=== PATIENT | female | born 1955 | race Caucasian/White ===

== ENCOUNTER 2020-01-01 08:34 | Outpatient (CLI) | payer MEDICARE, OTHER ==
[2020-01-01 12:08] LABS: ALBUMIN 3.8 g/dL (3.2-5.5); ALKALINE PHOSPHATASE 72 IU/L (42-121); ALT ALANINE AMINOTRANSFERASE 20 IU/L (10-60); AST ASPARTATE AMINOTRANSFERASE 15 IU/L (10-42); BILIRUBIN,TOTAL 0.8 mg/dL (0.2-1.0); BUN - BLOOD UREA NITROGEN 14 mg/dL (6-20); CALCIUM 9.3 mg/dL (8.5-10.3); CARBON DIOXIDE - CO2 26 mmol/L (21-32); CHLORIDE 103 mmol/L (101-111); CHOL/HDL RATIO 3.8 (<4.4); CHOLESTEROL 199 mg/dL; CREATININE 0.5 mg/dL (0.4-1.0); GLUCOSE 92 mg/dL (70-100); HDL CHOLESTEROL 52 mg/dL; LDL CHOLESTEROL,CALCULATED 112 mg/dL; LDL/HDL RATIO 2.2 (<4.4); SODIUM 139 mmol/L (135-145); TOTAL PROTEIN 7.6 g/dL (6.7-8.2); VLDL CHOLESTEROL 35 mg/dL
[2020-01-01 12:11] LABS: BASOPHILS % (AUTO) 0.3 %; EOSINOPHILS # (AUTO) 0.4 10^3/uL (0.0-0.7); EOSINOPHILS % (AUTO) 3.5 %; HGB - HEMOGLOBIN 14.2 g/dL (12.0-16.0); LYMPHOCYTES # (AUTO) 3.1 10^3/uL (1.5-3.5); LYMPHOCYTES % (AUTO) 29.6 %; MEAN CORPUSCULAR HEMOGLOBIN 28.6 pg (27.0-31.0); MEAN CORPUSCULAR HGB CONC 34.9 g/dL (32.0-36.0); MEAN CORPUSCULAR VOLUME 81.9 fL (81.0-99.0); MEAN PLATELET VOLUME 11.3 fL (7.9-10.8); MONOCYTES # (AUTO) 0.6 10^3/uL (0.0-1.0); MONOCYTES % (AUTO) 5.8 %; NEUTROPHILS # (AUTO) 6.4 10^3/uL (1.5-6.6); NEUTROPHILS % (AUTO) 60.5 %; PLT - PLATELET COUNT 387 10^3/uL (130-450); RED BLOOD COUNT 4.97 10^6/uL (4.20-5.40); RED CELL DISTRIBUTION WIDTH 13.7 % (12.0-15.0); WHITE BLOOD COUNT 10.5 x10^3/uL (4.8-10.8)
[2020-01-01 12:56] LABS: HEMOGLOBIN A1c% 5.6 % (4.27-6.07)
== END 2020-03-02 23:59 | disposition home or self-care (01) ==
LOC: LAB.WCP 08:34
PROVIDERS: ATTEND Nurse Practitioner Family
DX: I10 Essential (primary) hypertension (principal); M06.9 Rheumatoid arthritis, unspecified; R73.03 Prediabetes; Z86.39 Personal history of other endocrine, nutritional and metabolic disease
CPT/HCPCS: 36415; 80053; 80061; 83036; 83721; 84443; 85025

== ENCOUNTER 2020-03-31 15:40 | Outpatient (CLI) | payer MEDICARE, BC ==
[2020-03-31 18:02] LABS: BASOPHILS % (AUTO) 0.2 %; EOSINOPHILS # (AUTO) 0.4 10^3/uL (0.0-0.7); EOSINOPHILS % (AUTO) 4.6 %; HGB - HEMOGLOBIN 13.8 g/dL (12.0-16.0); LYMPHOCYTES # (AUTO) 2.5 10^3/uL (1.5-3.5); LYMPHOCYTES % (AUTO) 29.6 %; MEAN CORPUSCULAR HEMOGLOBIN 27.4 pg (27.0-31.0); MEAN CORPUSCULAR HGB CONC 34.8 g/dL (32.0-36.0); MEAN CORPUSCULAR VOLUME 78.8 fL (81.0-99.0); MEAN PLATELET VOLUME 11.8 fL (7.9-10.8); MONOCYTES # (AUTO) 0.6 10^3/uL (0.0-1.0); MONOCYTES % (AUTO) 6.8 %; NEUTROPHILS % (AUTO) 58.7 %; PLT - PLATELET COUNT 377 10^3/uL (130-450); RED BLOOD COUNT 5.04 10^6/uL (4.20-5.40); RED CELL DISTRIBUTION WIDTH 14.4 % (12.0-15.0); WHITE BLOOD COUNT 8.6 x10^3/uL (4.8-10.8)
[2020-03-31 18:13] LABS: ALBUMIN 3.8 g/dL (3.2-5.5); BILIRUBIN,TOTAL 0.7 mg/dL (0.2-1.0); CALCIUM 9.1 mg/dL (8.5-10.3); CREATININE 0.5 mg/dL (0.4-1.0); CRP - C-REACTIVE PROTEIN 1.2 mg/dL (0-1.0); TOTAL PROTEIN 7.6 g/dL (6.7-8.2)
[2020-03-31 18:25] LABS: RHEUMATOID FACTOR NEGATIVE (Negative)
[2020-04-01 12:26] LABS: HEPATITIS C ANTIBODY NON-REACTIVE (NON-REACTIVE)
[2020-04-01 12:27] LABS: HEPATITIS B SURFACE ANTIGEN NON-REACTIVE (NON-REACTIVE)
[2020-04-02 20:32] LABS: CYCLIC CITRULL PEPTIDE CCP IGG >250 UNITS
== END 2020-03-31 23:59 | disposition home or self-care (01) ==
LOC: LAB.WCP 15:40
PROVIDERS: ATTEND Internal Medicine Rheumatology
DX: M06.9 Rheumatoid arthritis, unspecified (principal)
CPT/HCPCS: 36415; 80053; 81599; 85025; 85651; 86140; 86200; 86317; 86430; 86480; 86704; 86803; 87340

== ENCOUNTER 2020-05-04 14:02 | Outpatient (CLI) | payer MEDICARE, BC ==
[2020-05-04 15:20] VITALS: BP 108/62
--- NOTE | 2020-05-04 15:20 | SLEEP CARE CONSULTATION ---
Information from patient questionnaire entered by Ismael Cummins. I have reviewed and concur with the information entered by Ismael Cummins. This document represents the service I personally performed and the decisions made by me, Eda Patel ARNP. History of Present Illness Service Date and Time: 05/04/2020 1402 Reason for Visit: New patient Chief Complaint: reports: Unrefreshed sleep, Snoring, Observed pauses in breathing, Fatigue, Frequent awakenings at night Date of Onset: Since 2014 Usual bedtime: 11:30 PM Time it takes to fall asleep: 1 hr Snores at night: No Number of times waking at night: 2-3 times Reasons for waking at night: reports: Gasping for air, Bathroom Toss, Turn, or Twitch while sleeping: Yes Recalls having dreams: No Usually gets out of bed at: 5 AM Feels refreshed in the morning: No Morning headache: No Sleepy or fatigued during the day: Yes Ever fallen asleep while driving: No (N/A) Takes day naps: Yes Dreams during day naps: No Prior sleep studies: Yes Year and Where: 2019 in [place], [place] - never got on machine Additional HPI information: I had the pleasure of seeing MYRANDA PACHECO today regarding the possibility of her having a sleep disorder. Her current complaints are snoring, observed pauses in breathing, frequent night awakenings, unrefreshed sleep and fatigue. She had a sleep study in 2019. She thought she was just a little bit over where she needed treatment but the physician told her she should use a CPAP. She never went back for the second test. She was referred by her PCP to complete her sleep evaluation. She has difficulty sleeping and wakes up 2-3 times a night. She usually sleeps good for 2-3 hours before she starts sleeping waking up. 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 Have you smoked in the past 12 months: No Alcohol use: No Caffeine use: No Family History Family history of sleep disordered breathing: No Allergies and Home Medications Drug allergies reviewed: Yes (aleve) Home medication list reviewed: Yes Allergy and home medication list: Clotrimazole-Betamethasone cream Spironolactone Pilocarpine MSM [place] Jelly Taiwanese Yam Chromium picolinate aloe vera vision essential citracal Elderberry bacopa monniera airborne Fish oil Diphenhydramine papaya Loratidine Vitamin B complex Vitamin C Coconut oil Famotidine bisoprolol fumarate amlodipine besylate Magnesium oxide L-arginine Vit Alive gummy Acetominophen prn olive leaf 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 prn cranberry concentrate, prn fluticasone propinate, prn Mucinex, prn Valerian Review of Systems Weight gain over past 5 years: 10 Cardiovascular: reports: high blood pressure Respiratory: reports: shortness of breath Gastrointestinal: reports: heartburn, abdominal pain Psychiatric: reports: anxiety, depression Ear/Nose/Throat: reports: nasal congestion, dry mouth/throat Endocrine: reports: sluggishness (tired) Musculoskeletal: reports: joint pain (stiffness), joint swelling, muscle pain or cramping, mobility problems Physical Exam Blood Pressure: 108/62 Cuff size: wrist Heart Rate: 81 O2 Saturation: 96 Height: 5 ft Weight: 156 lb Body Mass Index: 30.4 BMI Classification: Obese Neck circumference: 13.6 (inches) Nostrils: patent to airflow Mouth and throat: narrow oropharynx Soft palate: long Hard palate: normal Uvula: normal Uvula visualization: 50% Mallampati Class II Tongue: normal in size Tonsils: absent bilaterally Neck: normal w/o lymphadenopathy or thyromegaly Heart: regular rate and rhythm Lungs: clear bilaterally Impression and Plan 1. Suspected Obstructive Sleep Apnea-Hypopnea Syndrome, as previously diagnosed and as suggested by a history of loud and irregular snoring, observed cessation of breath while asleep, gasping or choking in sleep, frequent awakening during the night, unrefreshed sleep, cognitive impairment, and excessive daytime sleepiness. She did have a previous study but did not go through with her second sleep study and never started on CPAP therapy. I recommend proceeding to polysomnography to confirm the diagnosis and to assess severity since she never started therapy. If the patient has significant sleep disordered breathing, a manual CPAP titration study will also be performed to find the optimal treatment pressure. * Schedule polysomnography +- manual CPAP titration study and return in 1-2 weeks after the study to discuss result and initiate therapy. * Avoid sedative and muscle relaxants around bedtime. * Attempt to lose weight. * Review instructions provided by trained office staff on how to prepare for the sleep study. * Return for follow-up after sleep study completed. Counseling Topics: Weight loss health impact Visit Type: In Office Time Spent with Patient (minutes): 37 Provider Statement: I spent 100% of the Face to Face Visit with the patient with greater than 50% spent counseling the patient and coordination of care.
== END 2020-05-04 14:03 | disposition home or self-care (01) ==
LOC: SC 14:02
PROVIDERS: ATTEND Nurse Practitioner Family
DX: G47.10 Hypersomnia, unspecified (principal); R06.81 Apnea, not elsewhere classified; G47.8 Other sleep disorders; R53.83 Other fatigue; R06.83 Snoring; R41.89 Other symptoms and signs involving cognitive functions and awareness; E66.9 Obesity, unspecified; Z68.30 Body mass index [BMI] 30.0-30.9, adult
CPT/HCPCS: 99203; G0463; 99212

== ENCOUNTER 2020-05-12 08:00 | Outpatient (CLI) | payer MEDICARE, BC ==
[2020-05-12 18:12] LABS: BASOPHILS % (AUTO) 0.2 %; EOSINOPHILS # (AUTO) 0.5 10^3/uL (0.0-0.7); EOSINOPHILS % (AUTO) 5.2 %; HCT - HEMATOCRIT 40.4 % (37.0-47.0); HGB - HEMOGLOBIN 13.7 g/dL (12.0-16.0); LYMPHOCYTES # (AUTO) 2.7 10^3/uL (1.5-3.5); LYMPHOCYTES % (AUTO) 29.5 %; MEAN CORPUSCULAR HEMOGLOBIN 26.8 pg (27.0-31.0); MEAN CORPUSCULAR HGB CONC 33.9 g/dL (32.0-36.0); MEAN CORPUSCULAR VOLUME 79.1 fL (81.0-99.0); MEAN PLATELET VOLUME 12.1 fL (7.9-10.8); MONOCYTES # (AUTO) 0.6 10^3/uL (0.0-1.0); MONOCYTES % (AUTO) 6.7 %; NEUTROPHILS # (AUTO) 5.4 10^3/uL (1.5-6.6); NEUTROPHILS % (AUTO) 58.2 %; PLT - PLATELET COUNT 362 10^3/uL (130-450); RED BLOOD COUNT 5.11 10^6/uL (4.20-5.40); RED CELL DISTRIBUTION WIDTH 14.6 % (12.0-15.0); WHITE BLOOD COUNT 9.3 x10^3/uL (4.8-10.8)
[2020-05-12 18:29] LABS: ALBUMIN 3.8 g/dL (3.2-5.5); ALBUMIN/GLOBULIN RATIO 1.1 (1.0-2.2); BILIRUBIN,TOTAL 0.6 mg/dL (0.2-1.0); CALCIUM 9.1 mg/dL (8.5-10.3); CREATININE 0.5 mg/dL (0.4-1.0); POTASSIUM 3.7 mmol/L (3.5-5.0); TOTAL PROTEIN 7.3 g/dL (6.7-8.2)
== END 2020-05-12 23:59 | disposition home or self-care (01) ==
LOC: LAB.WCP 08:00
PROVIDERS: ATTEND Internal Medicine Rheumatology
DX: M05.79 Rheumatoid arthritis with rheumatoid factor of multiple sites without organ or systems involvement (principal)
CPT/HCPCS: 36415; 80053; 85025; 85651

== ENCOUNTER 2020-07-07 15:01 | Outpatient (CLI) | payer MEDICARE, BC ==
[2020-07-07 17:58] LABS: BASOPHILS % (AUTO) 0.3 %; EOSINOPHILS # (AUTO) 0.3 10^3/uL (0.0-0.7); EOSINOPHILS % (AUTO) 3.3 %; HCT - HEMATOCRIT 39.4 % (37.0-47.0); HGB - HEMOGLOBIN 13.5 g/dL (12.0-16.0); LYMPHOCYTES # (AUTO) 2.3 10^3/uL (1.5-3.5); LYMPHOCYTES % (AUTO) 25.1 %; MEAN CORPUSCULAR HEMOGLOBIN 26.9 pg (27.0-31.0); MEAN CORPUSCULAR HGB CONC 34.3 g/dL (32.0-36.0); MEAN CORPUSCULAR VOLUME 78.6 fL (81.0-99.0); MEAN PLATELET VOLUME 12.8 fL (7.9-10.8); MONOCYTES # (AUTO) 0.8 10^3/uL (0.0-1.0); MONOCYTES % (AUTO) 8.6 %; NEUTROPHILS # (AUTO) 5.7 10^3/uL (1.5-6.6); NEUTROPHILS % (AUTO) 62.5 %; PLT - PLATELET COUNT 330 10^3/uL (130-450); RED BLOOD COUNT 5.01 10^6/uL (4.20-5.40); RED CELL DISTRIBUTION WIDTH 14.5 % (12.0-15.0); WHITE BLOOD COUNT 9.1 x10^3/uL (4.8-10.8)
[2020-07-07 18:56] LABS: ALBUMIN 3.8 g/dL (3.2-5.5); ALBUMIN/GLOBULIN RATIO 1.1 (1.0-2.2); BILIRUBIN,TOTAL 0.6 mg/dL (0.2-1.0); CREATININE 0.6 mg/dL (0.4-1.0); POTASSIUM 3.7 mmol/L (3.5-5.0); TOTAL PROTEIN 7.2 g/dL (6.7-8.2)
== END 2020-07-07 23:59 | disposition home or self-care (01) ==
LOC: LAB.WCP 15:01
PROVIDERS: ATTEND Internal Medicine Rheumatology
DX: M05.79 Rheumatoid arthritis with rheumatoid factor of multiple sites without organ or systems involvement (principal)
CPT/HCPCS: 36415; 80053; 85025; 85651

== ENCOUNTER 2020-07-08 12:18 | Outpatient (CLI) | payer MEDICARE, BC ==
--- NOTE | 2020-07-08 15:28 | SLEEP CARE CONSULTATION ---
Information from patient questionnaire entered by Kenisha Mcginnis. I have reviewed and concur with the information entered by Kenisha Mcginnis. This document represents the service I personally performed and the decisions made by , Eda Patel ARNP. History of Present Illness Service Date and Time: 07/08/2020 1218 Initial [place] Sleepiness Scale score: 16 (in 2020) Current [place] Sleepiness Scale score: 17 Additional HPI information: MYRANDA PACHECO returns for follow up and results of the recently performed polysomnography at [facility]. I explained the pathophysiology behind obstructive sleep apnea. We then spent quite a bit of time discussing different treatment options. For mild obstructive sleep apnea, surgery and oral appliance are alternatives to nasal CPAP therapy but in moderate or severe cases, nasal CPAP is the most effective and reliable treatment. Because apnea is primarily in supine position, then positional management therapy could be effective. Methods discussed such as positioning with pillows to prevent supine sleep. I reviewed the impact of weight changes on sleep apnea and strongly recommended losing weight. After some discussion, the patient opted to go with the nasal CPAP therapy. Nasal autoCPAP set at 4-15 cmH20 will be ordered with rationale explained. A manual titration study will be ordered if unable to find optimal pressure with office adjustments. I explained how CPAP machine works with sample devices Respironics Dreamstation and ResFlipaste [id number] and what to expect when using the machine. Sleep Study - Results Type of Sleep Study: Polysomnography ([facility]) Prior sleep studies: Yes Year and Where: 2018 in [place], [place] - never got on machine Polysomnography/Home Sleep Study results: This nocturnal polysomnographic sleep study showed mild snoring which was intermittent in nature. The apnea/hypopnea index was 16.0 and the sleep efficiency was 46.7%. The PLM index was 54.3. The sleep study Is consistent with moderate obstructive sleep apnea which was severe in REM sleep with significant desaturation events down to 65%. Therefore, would recommend the patient return to the sleep lab for a fullnight CPAP titration study. Alternative therapies, Including dental appliances and surgical procedures could also be considered. Attaining optimal weight is recommended. Allergies and Home Medications Home medication list reviewed: Yes (no new meds) Review of Systems Review of systems same as previous: No (Vertigo) Physical Exam Heart Rate: 97 O2 Saturation: 95 Height: 5 ft Weight: 156 lb Body Mass Index: 30.4 BMI Classification: Obese Impression and Plan 1. Obstructive Sleep Apnea-Hypopnea Syndrome, moderate, with lowest oxygen saturation of 65%. Obviously this is the cause of the patients symptoms of unrefreshed sleep, and excessive daytime sleepiness. Positive pressure therapy could benefit hypertension, anxiety, depression and attention deficit. Patient is leaving for town until first week of September and does not want to start the CPAP until she get back into town. Compliance guidelines were reviewed. Because the apnea is more severe supine, I instructed to avoid sleeping supine using pillow positioning until able to start CPAP use. * Patient to call to start CPAP when she is back in town. * Attempt to lose weight. * Avoid alcohol consumption near bedtime. * Avoid supine sleep until using CPAP. * Return one month after CPAP obtained. I will assess response to therapy and compliance at that time. Counseling Topics: Weight loss health impact Visit Type: In Office Time Spent with Patient (minutes): 17 Provider Statement: I spent 100% of the Face to Face Visit with the patient with greater than 50% spent counseling the patient and coordination of care.
== END 2020-07-08 12:19 | disposition home or self-care (01) ==
LOC: SC 12:18
PROVIDERS: ATTEND Nurse Practitioner Family
DX: G47.33 Obstructive sleep apnea (adult) (pediatric) (principal); E66.9 Obesity, unspecified; Z68.30 Body mass index [BMI] 30.0-30.9, adult
CPT/HCPCS: 99212

== ENCOUNTER 2020-07-08 16:51 | Emergency (ER) | payer MEDICARE, BC ==
--- OUTSIDE RECORDS SUMMARY | 2020-07-08 16:54 | EXTERNAL MEDICAL SUMMARY RPT | Continuity of Care Document ---
:1955 Demographics Phone Unavailable Preferred Language Northern Irish Marital Status Unknown Yazidism Affiliation Unknown Race Unknown Ethnic Group Unknown Author Organization [facility] Address [address] [place] [address] Phone Care Team Providers Name Role Phone Bebeto Davis Unavailable Unavailable Problems date description facility [id number] Sleep apnea, unspecified [facility] [id number] Other [facility] Procedures date description facility [id number] [facility]
--- OUTSIDE RECORDS SUMMARY | 2020-07-08 17:01 | EXTERNAL MEDICAL SUMMARY RPT | Continuity of Care Document ---
:1955 Demographics Phone Unavailable Preferred Language South Korean Marital Status Unknown Yazidism Affiliation Unknown Race Unknown Ethnic Group Unknown Author Organization [facility] Address [address] [place] [address] Phone Care Team Providers Name Role Phone Bebeto Davis Unavailable Unavailable Problems date description facility [id number] Sleep apnea, unspecified [facility] [id number] Other [facility] Procedures date description facility [id number] [facility]
[2020-07-08] MEDS ORDERED: MECLIZINE 12.5 MG TABLET PO STA ×2 (18:22→20:46)
--- NOTE | 2020-07-08 18:22 | ED Physician Documentation ---
History of Present Illness - Stated complaint Stated Complaint: VERTIGO - Chief complaint Chief Complaint: General - History obtained from History obtained from: Patient - Additonal information Additional information: 64-year-old woman with hypertension, hyperlipidemia, sleep apnea, blindness has been vertiginous for a week. It is worse when she turns her head. Before today it was really only present if she laid down. Starting today she has it more in other positions. Its associated with a couple of days of pain in the right posterior neck. She was nauseous and was seen at an urgent care clinic who sent her here after giving her Zofran. Review of Systems Ten Systems: 10 systems reviewed and negative Constitutional: denies: Fever, Chills Eyes: reports: Loss of vision. denies: Decreased vision, Photophobia PD PAST MEDICAL HISTORY - Present Medications Home Medications: Ambulatory Orders Medication Instructions Recorded Confirmed Leflunomide [Arava] 1 tab DAILY 07/08/20 07/08/20 Meclizine HCl [Antivert] 1 tablet PO Q6H PRN #30 tab 07/08/20 amLODIPine [Norvasc] 1 tab DAILY 07/08/20 07/08/20 - Allergies Allergies/Adverse Reactions: Allergies Allergy/AdvReac Type Severity Reaction Status Date / Time No Known Drug Allergies Allergy Verified 07/08/20 17:04 PD ED PE NORMAL - Vitals Vital signs reviewed: Yes - General General: Alert and oriented X 3, No acute distress - HEENT HEENT: Other (Difficult to assess extraocular movements, she does not think her vision is any worse than normal. She does have nystagmus horizontally when I turn her head to the left. She feels the vertigo is worse when we turn her head to the right.) - Neck Neck: Supple, no meningeal sign, No bony TTP - Cardiac Cardiac: RRR, No murmur - Respiratory Respiratory: No respiratory distress, Clear bilaterally - Abdomen Abdomen: Normal bowel sounds, Soft, Non tender - Back Back: No CVA TTP, No spinal TTP - Derm Derm: Normal color, Warm and dry - Extremities Extremities: No edema, No calf tenderness / cord - Neuro Neuro: Alert and oriented X 3, veterinary microbiologist 2-12 intact (Other than blindness, extraocular movements and other cranial nerves seem intact.), No motor deficit, No sensory deficit, Normal speech Eye Opening: Spontaneous Motor: Obeys Commands Verbal: Oriented GCS Score: 15 Results - Vitals Vitals: Vital Signs - 24 hr 07/08/20 07/08/20 07/08/20 17:00 18:30 20:55 Temperature 36.1 C L 36.6 C Heart Rate 88 87 84 Respiratory 14 16 18 Rate Blood Pressure 142/69 H 154/70 H 130/69 O2 Saturation 96 97 95 Oxygen O2 Source Room air - EKG (time done) 2049 Rate: Rate (enter#) (83) Rhythm: NSR [place]: Normal Intervals: Normal CA QRS: LVH Ischemia: Normal ST segments - Labs Labs: Laboratory Tests 07/08/20 07/08/20 18:26 18:26 WBC 12.9 H RBC 5.17 Hgb 14.2 Hct 40.4 MCV 78.1 L MCH 27.5 MCHC 35.1 RDW 14.3 Plt Count 327 MPV 11.2 H Neut # (Auto) 10.6 H Lymph # (Auto) 1.5 [place] # (Auto) 0.5 Eos # (Auto) 0.2 Baso # (Auto) 0.0 Absolute Nucleated RBC 0.00 Nucleated RBC % 0.0 Sodium 141 Potassium 3.5 Chloride 102 Carbon Dioxide 29 Anion Gap 10.0 BUN 14 Creatinine 0.4 Estimated GFR (MDRD) 160 Glucose 124 H Calcium 9.1 PD MEDICAL DECISION MAKING - ED course ED course: 64-year-old woman with some comorbidities presents with what seems like peripheral vertigo. Exam was a little difficult because of blindness. As such CT angiography of the head and neck were done without pertinent positive findings but the thyroid abnormality was discussed with her and her daughter. Of note she had normal thyroid studies about 6 months ago. Also discussed finding of LVH on EKG and the need for follow-up for that. She was vertigo free after meclizine here. Departure - Departure Disposition: 01 Home, Self Care Clinical Impression: Vertigo Condition: Good Record reviewed to determine appropriate education?: Yes Instructions: ED Vertigo Unspecified Prescriptions: Meclizine HCl [Antivert] 1 tablet PO Q6H PRN #30 tab PRN Reason: Vertigo Comments: EKG does not show anything that looks new, but it does suggest enlargement of the left ventricle. Follow-up with your primary care physician and discuss ultrasonography/echocardiography of the heart. Return for new or worsening symptoms. Do not drink or drive while taking meclizine as it is slightly sedating. CT of the head and neck were negative but did suggest some enlargement of the thyroid gland. Thyroid function was normal on labs about 6 months ago but probably needs to be followed by your doctor as well.
[2020-07-08] MEDS ORDERED: IOPAMIDOL-300 100 ML VIAL ONE (18:29)
[2020-07-08 18:31] LABS: BASOPHILS % (AUTO) 0.2 %; EOSINOPHILS # (AUTO) 0.2 10^3/uL (0.0-0.7); EOSINOPHILS % (AUTO) 1.7 %; HCT - HEMATOCRIT 40.4 % (37.0-47.0); HGB - HEMOGLOBIN 14.2 g/dL (12.0-16.0); LYMPHOCYTES # (AUTO) 1.5 10^3/uL (1.5-3.5); LYMPHOCYTES % (AUTO) 11.8 %; MEAN CORPUSCULAR HEMOGLOBIN 27.5 pg (27.0-31.0); MEAN CORPUSCULAR HGB CONC 35.1 g/dL (32.0-36.0); MEAN CORPUSCULAR VOLUME 78.1 fL (81.0-99.0); MEAN PLATELET VOLUME 11.2 fL (7.9-10.8); MONOCYTES # (AUTO) 0.5 10^3/uL (0.0-1.0); MONOCYTES % (AUTO) 3.7 %; NEUTROPHILS # (AUTO) 10.6 10^3/uL (1.5-6.6); NEUTROPHILS % (AUTO) 82.4 %; PLT - PLATELET COUNT 327 10^3/uL (130-450); RED BLOOD COUNT 5.17 10^6/uL (4.20-5.40); RED CELL DISTRIBUTION WIDTH 14.3 % (12.0-15.0); WHITE BLOOD COUNT 12.9 x10^3/uL (4.8-10.8)
[2020-07-08 18:41] LABS: CALCIUM 9.1 mg/dL (8.5-10.3); CREATININE 0.4 mg/dL (0.4-1.0); POTASSIUM 3.5 mmol/L (3.5-5.0)
[2020-07-08] MEDS ORDERED: HYDROmorphone 1 MG/ML CARPUJECT IVP STA (18:46)
--- NOTE | 2020-07-08 20:19 | CT Report ---
PROCEDURE: ANGIO NECK W INDICATIONS: vertigo CONTRAST: IV CONTRAST: Isovue 300 ml: 80 PO CONTRAST: *NO PO CONTRAST TECHNIQUE: After the administration of intravenous contrast, 1.5 mm axial sections acquired from the aortic arch to the [place] of Valdovinos. Coronal 3-D maximum intensity projection (MIP) and/or volume rendering ref ormats were then performed. For radiation dose reduction, the following was used: automated exposur e control, adjustment of mA and/or kV according to patient size. COMPARISON: None. FINDINGS: Image quality: Excellent. Carotid system: The great vessels demonstrate a conventional anatomy as they arise from the aortic a rc. The origins of the common carotid arteries appear patent. The common carotid arteries demonstr ate normal calibers and courses. The bifurcation regions appear normal bilaterally. The internal ca rotid arteries demonstrate normal caliber and course. Posterior circulation: The origins of the vertebral arteries appear patent. The more superior porti ons of the vertebral arteries demonstrate normal course and caliber. They join to form a normal appe aring basilar artery. Soft tissues: Visualized neck soft tissues demonstrate no suspicious abnormalities. The thyroid gla nd is heterogeneous enhancement. Bones: No suspicious bony lesions. Visualized cervical spine appears normally aligned. IMPRESSION: 1. No hemodynamic significant stenosis or occlusion in cervical carotid and vertebral arteries. 2. Enlarged thyroid gland demonstrates heterogeneous enhancement. Please correlate with thyroid funct ion tests. The estimate of stenosis included in the report of the imaging study was calculated using the NASCET method Reviewed by: Danish Alaniz MD on 07/08/2020 8:17 PM PDT Approved by: Danish Alaniz MD on 07/08/2020 8:17 PM PDT Station ID: [id number]
[2020-07-08] MEDS ORDERED: IOPAMIDOL-300 100 ML VIAL IVP ONE (20:34)
--- NOTE | 2020-07-08 20:38 | CT Report ---
PROCEDURE: ANGIO HEAD W/WO INDICATIONS: vertigo CONTRAST: IV CONTRAST: Isovue 300 ml: 80 PO CONTRAST: *NO PO CONTRAST TECHNIQUE: Precontrast 4.5 mm thick angled axial sections acquired from the foramen magnum to the vertex. Afte r the administration of intravenous contrast, 1 mm thick sections acquired through the [place] of Will is. Postcontrast 4.5 mm thick sections then re-acquired from the foramen magnum to the vertex. 3-di mensional fuyaygt-fuwfmalbj-jpjbqayjol (MIP) and/or volume rendering reformats were acquired of the c entral intracranial vasculature. For radiation dose reduction, the following was used: automated ex posure control, adjustment of mA and/or kV according to patient size. COMPARISON: CT neck angiogram with contrast, 07/11/2020. FINDINGS: Image quality: Excellent. Anterior circulation: Intracranial internal carotid arteries are normal in size and flow. The flow within the paired anterior cerebral arteries is normal and symmetric. The flow within the middle cer ebral arteries is normal and symmetric. The anterior communicating artery is seen. No aneurysms are seen. Posterior circulation: Visualized portions of the vertebral arteries demonstrate normal caliber, and join to form a normal appearing basilar artery. Flow within the posterior cerebral arteries is norm al and symmetric. No aneurysms are seen. CSF spaces: Ventricles are normal in size and shape. Basal cisterns are patent. No extra-axial flu id collections. Brain: No midline shift. No intracranial bleeds or masses. Noble-white matter interface appears int act. Skull and face: Calvarium and facial bones appear intact, without suspicious lesions. Sinuses: Visualized sinuses and mastoids are clear. IMPRESSION: 1. No acute intracranial abnormality. 2. No high-grade stenosis in anterior or posterior circulations. Reviewed by: Danish Alaniz MD on 07/08/2020 8:37 PM PDT Approved by: Danish Alaniz MD on 07/08/2020 8:37 PM PDT Station ID: [id number]
[2020-07-08 20:56] VITALS: BP 130/69
== END 2020-07-08 21:00 | disposition home or self-care (01) ==
LOC: ED 16:51
DX: R42 Dizziness and giddiness (principal); M54.2 Cervicalgia; R11.0 Nausea; E04.9 Nontoxic goiter, unspecified; H54.7 Unspecified visual loss; I10 Essential (primary) hypertension; E78.5 Hyperlipidemia, unspecified; G47.33 Obstructive sleep apnea (adult) (pediatric); E66.9 Obesity, unspecified; Z68.30 Body mass index [BMI] 30.0-30.9, adult
CPT/HCPCS: 36415; 70496; 70498; 80048; 85025; 93005; 99212; 99284; A9270; G0463; Q9967

== ENCOUNTER 2020-10-07 08:00 | Outpatient (CLI) | payer MEDICARE, BC | END 2020-10-07 08:01 | disposition home or self-care (01) | LOC: LAB.R 08:00 | PROVIDERS: ATTEND Family Medicine | DX: R35.0 Frequency of micturition (principal) | CPT/HCPCS: 87077; 87086; 87181 ==

== ENCOUNTER 2020-10-13 08:00 | Outpatient (CLI) | payer MEDICARE, BC ==
[2020-10-13 11:44] LABS: BASOPHILS % (AUTO) 0.3 %; EOSINOPHILS # (AUTO) 0.5 10^3/uL (0.0-0.7); EOSINOPHILS % (AUTO) 5.6 %; HCT - HEMATOCRIT 42.1 % (37.0-47.0); HGB - HEMOGLOBIN 14.4 g/dL (12.0-16.0); LYMPHOCYTES # (AUTO) 3.2 10^3/uL (1.5-3.5); LYMPHOCYTES % (AUTO) 36.7 %; MEAN CORPUSCULAR HEMOGLOBIN 27.6 pg (27.0-31.0); MEAN CORPUSCULAR HGB CONC 34.2 g/dL (32.0-36.0); MEAN CORPUSCULAR VOLUME 80.7 fL (81.0-99.0); MEAN PLATELET VOLUME 12.1 fL (7.9-10.8); MONOCYTES # (AUTO) 0.6 10^3/uL (0.0-1.0); NEUTROPHILS # (AUTO) 4.3 10^3/uL (1.5-6.6); NEUTROPHILS % (AUTO) 50.2 %; PLT - PLATELET COUNT 369 10^3/uL (130-450); RED BLOOD COUNT 5.22 10^6/uL (4.20-5.40); RED CELL DISTRIBUTION WIDTH 14.4 % (12.0-15.0); WHITE BLOOD COUNT 8.6 x10^3/uL (4.8-10.8)
[2020-10-13 12:23] LABS: ESTIMATED AVERAGE GLUCOSE 123 mg/dL (70-100); HEMOGLOBIN A1c% 5.9 % (4.27-6.07)
[2020-10-13 12:29] LABS: ALBUMIN 3.8 g/dL (3.2-5.5); ALBUMIN/GLOBULIN RATIO 1.2 (1.0-2.2); ALKALINE PHOSPHATASE 88 IU/L (42-121); ALT ALANINE AMINOTRANSFERASE 27 IU/L (10-60); AST ASPARTATE AMINOTRANSFERASE 18 IU/L (10-42); BILIRUBIN,TOTAL 0.8 mg/dL (0.2-1.0); BUN - BLOOD UREA NITROGEN 17 mg/dL (6-20); CARBON DIOXIDE - CO2 25 mmol/L (21-32); CHLORIDE 106 mmol/L (101-111); CHOL/HDL RATIO 4.3 (<4.4); CHOLESTEROL 196 mg/dL; CREATININE 0.6 mg/dL (0.4-1.0); GFR - MDRD 100 (>89); GLUCOSE 107 mg/dL (70-100); HDL CHOLESTEROL 46 mg/dL; LDL CHOLESTEROL,CALCULATED 118 mg/dL; LDL/HDL RATIO 2.6 (<4.4); POTASSIUM 3.8 mmol/L (3.5-5.0); SODIUM 142 mmol/L (135-145); TRIGLYCERIDES 161 mg/dL; VLDL CHOLESTEROL 32 mg/dL
== END 2020-10-13 23:59 | disposition home or self-care (01) ==
LOC: LAB.WCP 08:00
PROVIDERS: ATTEND Family Medicine
DX: R73.03 Prediabetes (principal); I10 Essential (primary) hypertension
CPT/HCPCS: 36415; 80053; 80061; 83036; 83721; 85025

== ENCOUNTER 2020-11-10 08:00 | Outpatient (CLI) | payer MEDICARE, BC ==
[2020-11-10 17:57] LABS: BASOPHILS % (AUTO) 0.5 %; EOSINOPHILS # (AUTO) 0.5 10^3/uL (0.0-0.7); EOSINOPHILS % (AUTO) 5.3 %; HGB - HEMOGLOBIN 13.9 g/dL (12.0-16.0); LYMPHOCYTES # (AUTO) 2.5 10^3/uL (1.5-3.5); LYMPHOCYTES % (AUTO) 29.5 %; MEAN CORPUSCULAR HEMOGLOBIN 27.7 pg (27.0-31.0); MEAN CORPUSCULAR HGB CONC 33.9 g/dL (32.0-36.0); MEAN CORPUSCULAR VOLUME 81.7 fL (81.0-99.0); MEAN PLATELET VOLUME 12.2 fL (7.9-10.8); MONOCYTES # (AUTO) 0.7 10^3/uL (0.0-1.0); MONOCYTES % (AUTO) 8.1 %; NEUTROPHILS # (AUTO) 4.8 10^3/uL (1.5-6.6); NEUTROPHILS % (AUTO) 56.3 %; PLT - PLATELET COUNT 352 10^3/uL (130-450); RED BLOOD COUNT 5.02 10^6/uL (4.20-5.40); RED CELL DISTRIBUTION WIDTH 14.7 % (12.0-15.0); WHITE BLOOD COUNT 8.6 x10^3/uL (4.8-10.8)
[2020-11-10 18:06] LABS: ALBUMIN 3.8 g/dL (3.2-5.5); ALBUMIN/GLOBULIN RATIO 1.1 (1.0-2.2); BILIRUBIN,TOTAL 0.6 mg/dL (0.2-1.0); CALCIUM 9.2 mg/dL (8.5-10.3); CREATININE 0.5 mg/dL (0.4-1.0); POTASSIUM 3.6 mmol/L (3.5-5.0); TOTAL PROTEIN 7.3 g/dL (6.7-8.2)
[2020-11-11 11:11] LABS: THYROID STIMULATING HORMONE 1.42 uIU/mL (0.34-5.60)
== END 2020-11-10 23:59 | disposition home or self-care (01) ==
LOC: LAB.WCP 08:00
PROVIDERS: ATTEND Internal Medicine Rheumatology
DX: M06.9 Rheumatoid arthritis, unspecified (principal); Z86.39 Personal history of other endocrine, nutritional and metabolic disease
CPT/HCPCS: 36415; 80053; 84443; 85025; 85651

== ENCOUNTER 2021-04-08 10:55 | Day surgery (SDC) | payer MEDICARE, BC ==
[2021-04-08] MEDS ORDERED: LIDOCAINE-MPF 2% 5 ML VIAL ONE (11:06)
[2021-04-08] MEDS ORDERED: PROPOFOL 200 MG/20 ML VIAL IVP ONE (11:06)
--- NOTE | 2021-04-08 11:20 | ANESTHESIA ---
Pre-Anesthesia VS, & Labs Height: 5 ft Weight (kg): 67.8 kg Body Mass Index: 29.2 BMI Classification: Overweight - NPO >8 hours - Is Patient ?: No - Lab Results Lab results reviewed: Yes <Paul Cummins - Last Filed: 04/08/21 11:18> - Diagnosis trouble swallowing (Paul Cummins) - Procedure EGD (Paul Cummins) Vital Signs: Temp Pulse Resp BP Pulse Ox 36.5 C 72 13 143/72 H 95 04/08/21 11:14 04/08/21 11:14 04/08/21 11:14 04/08/21 11:14 04/08/21 11:14 Home Medications and Allergies <Paul Cummins - Last Filed: 04/08/21 11:18> <Ellen Last - Last Filed: 04/08/21 12:09> Leflunomide [Arava] 1 tab ORAL DAILY 07/08/20 amLODIPine [Norvasc] 1 tab ORAL DAILY 07/08/20 Allergies/Adverse Reactions: Allergies Allergy/AdvReac Type Severity Reaction Status Date / Time No Known Drug Allergies Allergy Verified 07/08/20 17:04 Anes History & Medical History - Anesthetic History Anesthesia Complications: reports: No previous complications Family history of Anesthesia Complications: Denies Family history of Malignant Hyperthermia: Denies - Medical History Cardiovascular: reports: Hypertension Pulmonary: reports: Sleep apnea Musculoskeletal: reports: Osteoarthritis Endocrine/Autoimmune: reports: HyPOthyroidism Smoking Status: Never smoker - Surgical History Eyes Ears Nose Throat (EENT): reports: Tonsil/Adenoidectomy Gynecologic: reports: Hysterectomy <Paul Cummins - Last Filed: 04/08/21 11:18> - Anesthetic History Anesthesia Complications: reports: Difficult airway (Severe sore throat after surgery and was told she needed a "child size tube") Family history of Anesthesia Complications: Denies Family history of Malignant Hyperthermia: Denies - Medical History Cardiovascular: reports: Hypertension Pulmonary: reports: Sleep apnea (Does not use CPAP) Gastrointestinal: reports: GERD, Other (dysphagia) Urinary: reports: None Neuro: reports: None Musculoskeletal: reports: Osteoarthritis Endocrine/Autoimmune: reports: HyPOthyroidism Blood Disorders: reports: None Skin: reports: None Smoking Status: Never smoker Psychosocial: reports: No issues indicated History of Cancer?: No - Surgical History Eyes Ears Nose Throat (EENT): reports: Tonsil/Adenoidectomy Gynecologic: reports: Hysterectomy <BerhaneEllen - Last Filed: 04/08/21 12:09> Exam General: Alert, Oriented x3, Cooperative, No acute distress Dental: WNL Mouth Openin Fingerbreadth Neck Mobility: Normal Mallampati classification: I <Paul Cummins - Last Filed: 04/08/21 11:18> General: Alert, Oriented x3, Cooperative, No acute distress Dental: WNL Mouth Openin Fingerbreadth Neck Mobility: Normal Mallampati classification: I Mental/Cognitive Status: Alert/Oriented X3, Normal for patient <BerhaneEllen Last Filed: 04/08/21 12:09> Plan Anesthesia Type: General, Total IV Consent for Procedure(s) Verified and Reviewed: Yes Code Status: Attempt Resuscitation ASA classification: 2-Mild systemic disease Is this case an emergency?: No <Davonte Cumminsle Last Filed: 04/08/21 11:18> Anesthesia Type: General, Total IV Consent for Procedure(s) Verified and Reviewed: Yes Code Status: Attempt Resuscitation ASA classification: 2-Mild systemic disease Is this case an emergency?: No <BerhaneEllen Last Filed: 04/08/21 12:09>
[2021-04-08] MEDS ORDERED: LACTATED RINGERS 1,000 ML IV ONE ×2 (11:23→12:46)
--- NOTE | 2021-04-08 12:46 | ANESTHESIA POST OP EVALUATION ---
Anesthesia Post Eval - Post Anesthesia Eval Vitals: Last Vital Signs Temp 36.5 C 04/08/21 11:14 Pulse 72 04/08/21 11:14 Resp 13 04/08/21 11:14 BP 143/72 H 04/08/21 11:14 Pulse Ox 95 04/08/21 11:14 CV Function Including HR & BP: Stable Pain Control: Satisfactory Nausea & Vomiting: Negative Mental Status: Baseline Respiratory Status: Airway Patent Hydration Status: Satisfactory Anesthesia Complications: None
[2021-04-08 13:21] VITALS: BP 115/53
== END 2021-04-08 10:56 | disposition home or self-care (01) ==
LOC: SDS 10:55
PROVIDERS: ATTEND Surgery
PROC: 0DB78ZX Excision of Stomach, Pylorus, Via Natural or Artificial Opening Endoscopic, Diagnostic (ICD-10-PCS; 2021-04-08)
PROC: 0DB28ZX Excision of Middle Esophagus, Via Natural or Artificial Opening Endoscopic, Diagnostic (ICD-10-PCS; 2021-04-08)
PROC: 0DB38ZX Excision of Lower Esophagus, Via Natural or Artificial Opening Endoscopic, Diagnostic (ICD-10-PCS; principal; 2021-04-08 12:00)
DX: R13.10 Dysphagia, unspecified (principal); K22.89 Other specified disease of esophagus; K29.50 Unspecified chronic gastritis without bleeding; K21.9 Gastro-esophageal reflux disease without esophagitis; K44.9 Diaphragmatic hernia without obstruction or gangrene; I10 Essential (primary) hypertension; G47.30 Sleep apnea, unspecified; Z79.899 Other long term (current) drug therapy
CPT/HCPCS: 43239; J7120

== ENCOUNTER 2021-04-22 09:03 | Outpatient (CLI) | payer MEDICARE, BC ==
--- NOTE | 2021-04-22 10:51 | Ultrasound Report ---
PROCEDURE: Head or Neck Soft Tissue INDICATIONS: THYROID NODULE TECHNIQUE: Real-time scanning was performed of the thyroid gland, with image documentation. COMPARISON: CTA neck 07/08/2012. FINDINGS: Right: Thyroid lobe measures 6.1 x 2.5 x 1.7 cm, and is homogeneous in echotexture. Left: Thyroid lobe measures 5.3 x 2.7 x 2.3 cm, and is homogenous in echotexture. Isthmus: 0.3 cm thick. Multiple bilateral thyroid nodules. The most suspicious 3 nodules are reported. Nodule number: One Location: Right mid lateral Size: 1.1 x 1.1 x 0.9 cm. Composition: Predominately solid Echogenicity: Isoechoic Shape: wider than tall. Margins: Smooth Echogenic foci: Punctate Total points: 6 ACR TI-RADS category: TR 4, moderately suspicious Nodule number: Two Location: Right inferior lateral Size: 1.8 x 1.5 x 1 cm. Composition: Mixed cystic and solid Echogenicity: Isoechoic Shape: wider than tall. Margins: Smooth Echogenic foci: Punctate Total points: 5 ACR TI-RADS category: TR 4, moderately suspicious Nodule number: Three Location: Left superior anterior Size: 2.7 x 2.6 x 1.5 cm. Composition: Solid Echogenicity: Isoechoic Shape: wider than tall. Margins: Smooth Echogenic foci: None Total points: 3 ACR TI-RADS category: TR 3, mildly suspicious IMPRESSION: Right inferior lateral thyroid nodule measuring 1.8 cm. TR 4, moderately suspicious. This nodule is m eeting criteria for FNA. Several additional nodules. Some of which meet criteria for follow-up ultrasound in one year. ACR TI-RADS definitions and recommendations: TI-RADS 1 (benign): 0 points. FNA not needed. TI-RADS 2 (not suspicious): 2 points. FNA not needed. TI-RADS 3 (mildly suspicious): 3 points. "FNA if 2.5 cm or larger, follow up if 1.5 cm or larger (at 1, 3, and 5 years). TI-RADS 4 (moderately suspicious): 4-6 points. "FNA if 1.5 cm or larger, follow up if 1 cm or larger (at 1, 2, 3, and 5 years). TI-RADS 5 (highly suspicious): 7 points or more. "FNA if 1 cm or larger, follow up if 0.5 cm or larger (every year for 5 years). Reviewed by: Ho Hernandez MD on 04/22/2021 10:49 AM PST Approved by: Ho Hernandez MD on 04/22/2021 10:49 AM [facility] Station ID: [id number]
== END 2021-04-22 09:04 | disposition home or self-care (01) ==
LOC: DI 09:03
PROVIDERS: ATTEND Family Medicine
DX: E04.2 Nontoxic multinodular goiter (principal)

== ENCOUNTER 2021-04-22 09:06 | Outpatient (CLI) | payer MEDICARE, BC ==
--- NOTE | 2021-04-22 10:59 | XRAY Report ---
PROCEDURE: Wrist 3 View BILAT INDICATIONS: CHRONIC WRIST PAIN TECHNIQUE: 3 views of the bilateral wrists were acquired. COMPARISON: None. FINDINGS: BONES: Diffuse osteopenia. No acute, displaced fracture or dislocation. The carpal bones are normally aligned. Right: Lucency in the mid scaphoid and about the distal radioulnar articulation, which may reflect fi brocystic change. Deformity of the distal ulna, which may reflect post traumatic injury. Left: Erosive change versus posttreatment injury of the mid scaphoid. Widening of the distal radiocar pal articulation. SOFT TISSUES: No focal abnormality. IMPRESSION: 1.Multifocal degenerative changes detailed above. Reviewed by: Maxi Boss MD on 04/22/2021 10:58 AM [facility] Approved by: Maxi Boss MD on 04/22/2021 10:58 AM [facility] Station ID: [id number]
== END 2021-04-22 09:07 | disposition home or self-care (01) ==
LOC: DI 09:06
PROVIDERS: ATTEND Family Medicine
DX: M25.531 Pain in right wrist (principal); M25.532 Pain in left wrist; M85.88 Other specified disorders of bone density and structure, other site; R93.6 Abnormal findings on diagnostic imaging of limbs; E04.2 Nontoxic multinodular goiter

== ENCOUNTER 2021-06-30 08:00 | Outpatient (CLI) | payer MEDICARE, BC ==
[2021-06-30 14:13] LABS: FECAL OCCULT BLOOD (FIT) NEGATIVE (NEGATIVE)
== END 2021-07-01 11:57 | disposition home or self-care (01) ==
LOC: LAB.N 08:00
PROVIDERS: ATTEND Physician Assistant
DX: Z12.11 Encounter for screening for malignant neoplasm of colon (principal)
CPT/HCPCS: 82274

== ENCOUNTER 2023-10-16 08:00 | Outpatient (CLI) | payer MEDICARE, OTHER | END 2023-10-16 23:59 | disposition home or self-care (01) | LOC: LAB.N 08:00 | PROVIDERS: ATTEND Family Medicine | DX: R82.90 Unspecified abnormal findings in urine (principal) | CPT/HCPCS: 87077; 87086; 87181 ==

== ENCOUNTER 2023-10-28 06:48 | Outpatient (CLI) | payer MEDICARE, OTHER ==
--- NOTE | 2023-10-29 23:33 | Ultrasound Report ---
PROCEDURE: Abdomen Limited INDICATIONS: L UPPER QUAD PAIN TECHNIQUE: Real-time focused scanning was performed of the abdomen, with image documentation. COMPARISONS: None. FINDINGS: Liver: Liver is normal in size and homogeneous in echotexture. There is increased hepatic echogenic ity. Gallbladder: No gallstones, sludge, wall thickening or pericholecystic edema. Biliary ducts: Intrahepatic bile ducts are non-dilated. Extrahepatic bile duct caliber measures 3 m m. Normal is 6-7 mm or less in diameter, or 10 mm or less post-cholecystectomy. Pancreas: Visualized portions of the pancreas are sonographically normal. Left kidney: Normal in size and echotexture. Left kidney measures 10.4 cm long. No hydronephrosis or nephrolithiasis. No solid masses. No complex renal cystic lesions which require follow-up. IVC: Intrahepatic inferior vena cava is patent. Miscellaneous: No free abdominal fluid. There is a hypoechoic focus seen between the spleen and left kidney measuring 2.4 x 3.0 x 2.6 cm, possible splenule versus mass. IMPRESSION: Left upper quadrant 2.6 cm hypoechoic focus between the spleen and liver, possible splenule versus ma ss. Recommend further evaluation with contrast-enhanced CT. Increased hepatic echogenicity can be seen in the setting of hepatic steatosis. Recommend correlation with LFTs. Reviewed by: Leela Perez MD, PhD on 10/29/2023 11:32 PM PDT Approved by: Leela Perez MD, PhD on 10/29/2023 11:32 PM PDT Station ID: [id number]
== END 2023-10-28 06:49 | disposition home or self-care (01) ==
LOC: DI 06:48
PROVIDERS: ATTEND Family Medicine
DX: R19.02 Left upper quadrant abdominal swelling, mass and lump (principal); R10.12 Left upper quadrant pain

== ENCOUNTER 2023-11-15 09:03 | Outpatient (CLI) | payer MEDICARE, OTHER ==
[2023-11-15 09:40] LABS: CREATININE 0.5 mg/dL (0.6-1.3)
[2023-11-15] MEDS ORDERED: iohexoL-300 100 ML VIAL ONE (09:43)
[2023-11-15] MEDS: iohexoL-300 100 ML VIAL IVP ONE (10:41)
--- NOTE | 2023-11-15 21:52 | CT Report ---
PROCEDURE: Abdomen W/WO INDICATIONS: SPLENIC MASS CONTRAST: 100ml omni 300 TECHNIQUE: After the administration of intravenous contrast, 5 mm thick sections acquired from the diaphragm to the symphysis. 5 mm coronal and sagittal reformats were acquired. For radiation dose reduction, the following was used: automated exposure control, adjustment of mA and/or kV according to patient siz e. COMPARISON: Abdominal ultrasound 10/28/2023. FINDINGS: Image quality: Excellent. Genitourinary: No hydronephrosis. No kidney stones. No solid renal mass. OTHER: Lung bases and heart: Right middle lobe calcification, likely a granuloma. Liver: No solid mass. Possible hepatic steatosis. Gallbladder and biliary tree: No radiopaque stones or wall thickening. No biliary dilation. Spleen: No splenomegaly. Pancreas: No pancreatic ductal dilation. Adrenals: Left adrenal nodule measuring 3.5 cm, (2/41). Noncontrast series: 2 Hounsfield units. This suggests a benign adenoma. Arterial series: 61 Hounsfield units Delayed series: 69 Hounsfield units Absolute washout -13.6%. Bowel and peritoneum: No bowel distension. No pathologic free fluid. Diverticulosis. No small bowel o bstruction. Lymph nodes: No central or retroperitoneal adenopathy. Vessels: No infrarenal aortic aneurysm. Bones: No aggressive osseous abnormality. Scoliosis. Other: No significant ventral hernia. IMPRESSION: 1. Left adrenal nodule measuring 3.5 cm. Imaging findings most consistent with a benign adenoma. 2. No kidney stones. No hydronephrosis. Reviewed by: Ho Hernandez MD on 11/15/2023 9:51 PM PDT Approved by: Ho Hernandez MD on 11/15/2023 9:51 PM PDT Station ID: [id number]
== END 2023-11-15 09:04 | disposition home or self-care (01) ==
LOC: LAB 09:03
PROVIDERS: ATTEND Family Medicine
DX: R16.1 Splenomegaly, not elsewhere classified (principal); E27.8 Other specified disorders of adrenal gland
CPT/HCPCS: 36415; 74170; 82565; Q9967